=== PATIENT | male | born 1955 | race Caucasian/White ===

== ENCOUNTER 2024-09-28 10:05 | Emergency (ER) | payer OTHER ==
[2024-09-28 10:10] VITALS: BP 121/85; PULSE 98; RESP 18; TEMP 98.1; BMI 27.1
[2024-09-28] MEDS ORDERED: DIPHTH,PERTUSS(ACELL),TET 0.5 ML DISP.SYRIN IM ONE (10:48)
[2024-09-28] MEDS: DIPHTH,PERTUSS(ACELL),TET 0.5 ML DISP.SYRIN IM ONE (10:52)
== END 2024-09-28 10:55 | disposition home or self-care (01) ==
LOC: FER 10:05
PROC: 0XQLXZZ Repair Right Thumb, External Approach (ICD-10-PCS; principal; 2024-09-28)
PROC: 3E0234Z Introduction of Serum, Toxoid and Vaccine into Muscle, Percutaneous Approach (ICD-10-PCS; 2024-09-28)
DX: S61.011A Laceration without foreign body of right thumb without damage to nail, initial encounter (principal); W26.8XXA Contact with other sharp object(s), not elsewhere classified, initial encounter; Z23 Encounter for immunization
CPT/HCPCS: 90715; 99284-25

== ENCOUNTER 2024-10-05 11:15 | Emergency (ER) | payer OTHER | END 2024-10-08 08:25 | disposition left against medical advice (07) | LOC: FER 20:45 | DX: Z53.21 Procedure and treatment not carried out due to patient leaving prior to being seen by health care provider (principal) | CPT/HCPCS: 99281-25 ==